=== PATIENT | male | born 1970 | race Caucasian/White ===

== ENCOUNTER 2021-07-17 09:14 | Emergency (ER) | payer BC, SELFPAY ==
[2021-07-17 09:51] VITALS: BP 123/77; PULSE 62; RESP 18; TEMP 36.3; O2SAT 98; BMI 28.2
--- NOTE | 2021-07-17 09:52 | ED.UPPEXIN ---
HPI - Extremity Injury (Upper) General Chief Complaint: Wound/Laceration Stated Complaint: finger lac Time Seen by Provider: 07/17/21 09:52 Source: patient Mode of arrival: ambulatory Limitations: no limitations History of Present Illness HPI narrative: 50 y/o male presenting to the ER with a laceration to the tip of his left index finger when he accidentally cut himself with clipping sheers while cutting branches this morning. He reports diffuse bleeding and pain when it happened but with direct pressure bleeding has stopped. He did not know how deep the laceration was so he came to the ER for evaluation. He is on not anticoagulation. He is not diabetic. He denies numbness in his finger. He is able to fully bend and extend. MD complaint: injury to: left and finger Onset (ago): hour(s) Other Extremity Injury: left: fingers (index) Other injuries: none Handedness: right Place: home Severity: mild Severity scale (1-10): 3 Relieving factors: none Exacerbating factors: none Context: laceration Associated symptoms: denies other symptoms Treatments prior to arrival: bandage Related Data Allergies Allergy/AdvReac Type Severity Reaction Status Date / Time No Known Allergies Allergy Verified 07/17/21 09:54 [No Known Allergies*] Review of Systems Review of Systems: Constitutional: No Fever, No Chills Cardiovascular: No Chest Pain Respiratory: No Cough Gastrointestinal: No Nausea, No Vomiting Musculoskeletal: No joint pain, No Myalgias Skin: + Skin Lesions, No rash Neuro: No Weakness, No Numbness Heme/Lymph: No Bruising PMFSH Social History Social History Advance Directives: No Advance Directives Information Provided: No Physical Exam Vital Signs: Vital Signs: Last Vital Signs Temp 97.4 F 07/17/21 09:51 Pulse 62 07/17/21 09:51 Resp 18 07/17/21 09:51 BP 123/77 07/17/21 09:51 Pulse Ox 98 07/17/21 09:51 Body Mass Index 28.2 Appearance: Alert. Oriented X3. No acute distress. HEENT: normal inspection CVS: Normal heart rate and rhythm. Pulses normal. Respiratory: No respiratory distress. Skin: Skin warm and dry. Normal skin color. Normal skin turgor. No rashes. Extremities: left hand normal to inspection. left distal index finger with a 1cm superficial laceration to the pulp without active bleeding. wound edges well approximated, nail intact. cap refill <3 sec. normal ROM of the finger. Neuro: Oriented X 3. No motor deficit. No sensory deficit. Course Course Course Narrative: 50 yo male presenting with superficial minor lac to left index finger. No need for sutures, amenable to dermabond. tetanus given. stable for d/c home - wound care discussed. Procedures Laceration Laceration 1: Site: hand Side (If applicable): left Size (cm): 1 Description: linear Depth: simple, single layer Pre-repair: irrigated extensively Skin layer closed with: other (dermabond skin glue) Critical Care Time Critical Care Time Critical Care Time: No Discharge Plan Discharge Clinical Impression: Laceration Patient Disposition: Home, Self-Care Instructions: Finger Laceration (ED) Additional Instructions: Skin glue was used to close your wound. Do not get wet today. Tomorrow you can briefly wash with soap and water, then pat dry. The glue should fall off on its own within a week, do not peel it off. If you develop signs or symptoms of infection, come back to the ER or call your doctor.
[2021-07-17] MEDS: Diphth,Pertus(ACell),Tet Adult 0.5 ML SYRINGE IM (10:09)
== END 2021-07-17 10:54 | disposition home or self-care (01) ==
PROVIDERS: Emergency Provider Emergency Medicine; PCP Internal Medicine
DX: S61.211A Laceration without foreign body of left index finger without damage to nail, initial encounter (principal); W27.2XXA Contact with scissors, initial encounter; Y93.H2 Activity, gardening and landscaping; Y92.017 Garden or yard in single-family (private) house as the place of occurrence of the external cause; Y99.9 Unspecified external cause status
CPT/HCPCS: 12001; 90471; 90715; 99283; 99284

== ENCOUNTER → 2022-01-18 10:26 | Outpatient (BNVA) | payer OTHER, SELFPAY | PROVIDERS: PCP Internal Medicine; Visit Provider Physician Assistant Medical | DX: S39.012A Strain of muscle, fascia and tendon of lower back, initial encounter (principal); X50.0XXA Overexertion from strenuous movement or load, initial encounter | CPT/HCPCS: 99203 ==

== ENCOUNTER → 2022-01-21 13:22 | Outpatient (BNVA) | payer OTHER, SELFPAY | PROVIDERS: PCP Internal Medicine; Visit Provider Physician Assistant | DX: S39.012A Strain of muscle, fascia and tendon of lower back, initial encounter (principal); X58.XXXA Exposure to other specified factors, initial encounter | CPT/HCPCS: 99214 ==

== ENCOUNTER → 2022-01-31 12:57 | Outpatient (BNVA) | payer OTHER, SELFPAY | PROVIDERS: PCP Internal Medicine; Visit Provider Physician Assistant Medical | DX: M46.1 Sacroiliitis, not elsewhere classified (principal); S39.012A Strain of muscle, fascia and tendon of lower back, initial encounter; X58.XXXA Exposure to other specified factors, initial encounter | CPT/HCPCS: 99213 ==

== ENCOUNTER → 2022-02-14 13:22 | Outpatient (BNVA) | payer OTHER, SELFPAY | PROVIDERS: PCP Internal Medicine; Visit Provider Physician Assistant Medical | DX: S39.012D Strain of muscle, fascia and tendon of lower back, subsequent encounter (principal); X58.XXXD Exposure to other specified factors, subsequent encounter | CPT/HCPCS: 99213 ==

== ENCOUNTER 2022-02-18 10:00 | Outpatient (RCR) | payer OTHER, BC, SELFPAY ==
--- NOTE | 2022-02-02 14:08 | MHC.PT.EP ---
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 He demonstrates poor posture, and body mechancis with functional movements such as bending and lifting. The patient did not have provocation of pain with Elba assessment. He had a left on left sacral torsion and left anterior innominant. I corrected both with MET and he felt slightly better. I educated him on sitting, sleeping posture as well as body mechanics but he will need more instruction. He will need general core stabilization due to hyper lumbar mobility. He is a good candidate for skilled PT. Frequency and Duration: The patient will be seen 2x/week x 4 weeks. Short Term Goals: .Pt to able to demonstrate proper sitting posture with the use of a lumbar roll to decrease aggravating factors. 2.Pt to be able to demonstrate proper posture for common leisure activities such as phone/tablet use. 3.For the patient to demonstrate proper upright sitting posture with use of the lumbar roll to improve compliance and carryover. Longterm Goals: 1. pt to be able to do all functional movements such as squatting, bending, and reaching overhead with good balance and motor control and posture. 2.The patient to demonstrate proper lifting mechanics for household chore activities to show improved functional mobility. 3. Pt to be able to demonstrate self management of lumbar pain by demonstration of HEP. Treatment Plan: Modalities to reduce pain, spasms and effusion. Manual therapy to restore motion and function. Therapeutic exercise to improve strength and flexibility. Neuromuscular re-education for posture and balance. Therapeutic activities to return to functional activities of daily living. Electronically signed by: Jojo Gaston PT DPT Please sign and return to therapist. Thank you for your referral.
== END 2022-04-22 07:59 | disposition home or self-care (01) ==
LOC: HO.PT 10:00
PROVIDERS: Visit Provider Physician Assistant Medical
DX: S39.012D Strain of muscle, fascia and tendon of lower back, subsequent encounter (principal)
CPT/HCPCS: 97110; 97112; 97140; 97162; 97530

== ENCOUNTER → 2022-02-24 09:50 | Outpatient (BNVA) | payer OTHER, SELFPAY | PROVIDERS: PCP Internal Medicine; Visit Provider Physician Assistant | DX: S39.012D Strain of muscle, fascia and tendon of lower back, subsequent encounter (principal); X58.XXXD Exposure to other specified factors, subsequent encounter | CPT/HCPCS: 99213 ==

== ENCOUNTER 2023-03-19 05:29 | Emergency (ER) | payer SELFPAY ==
--- NOTE | ~2023-03-19 | XR_ITS ---
EXAMINATION: XR foot RT min 3V, XR ankle RT min 3V CLINICAL INFORMATION: Reason for Exam pain, swelling COMPARISON: None. TECHNIQUE: 3 views of the right ankle and 3 views of the right foot were obtained. FINDINGS: Right ankle: The bony alignments are intact. The cortices are intact. Articular margins, joint space. Soft tissues are unremarkable. Right foot: Mild hallux valgus deformity. The bony alignments are intact. The cortices are intact. Apparent subtle radiolucency along the anterior aspect of the calcaneus, seen only on the oblique projection, remains indeterminate. XR/XR ankle RT min 3V IMPRESSION: 1. Unremarkable radiographic appearance of the right ankle. 2. Mild hallux valgus deformity. 3. Apparent subtle radiolucency along the anterior aspect of the calcaneus, seen only on the oblique projection, remains indeterminate. Follow-up nonemergent MRI of the right hindfoot may be considered for further clarification, if clinically appropriate. Comparison with prior studies if available would also be helpful for further clarification.
--- NOTE | ~2023-03-19 | XR_ITS ---
EXAMINATION: XR foot RT min 3V, XR ankle RT min 3V CLINICAL INFORMATION: Reason for Exam pain, swelling COMPARISON: None. TECHNIQUE: 3 views of the right ankle and 3 views of the right foot were obtained. FINDINGS: Right ankle: The bony alignments are intact. The cortices are intact. Articular margins, joint space. Soft tissues are unremarkable. Right foot: Mild hallux valgus deformity. The bony alignments are intact. The cortices are intact. Apparent subtle radiolucency along the anterior aspect of the calcaneus, seen only on the oblique projection, remains indeterminate. XR/XR foot RT min 3V IMPRESSION: 1. Unremarkable radiographic appearance of the right ankle. 2. Mild hallux valgus deformity. 3. Apparent subtle radiolucency along the anterior aspect of the calcaneus, seen only on the oblique projection, remains indeterminate. Follow-up nonemergent MRI of the right hindfoot may be considered for further clarification, if clinically appropriate. Comparison with prior studies if available would also be helpful for further clarification.
[2023-03-19 05:35] VITALS: BP 114/59; PULSE 75; RESP 16; TEMP 36.8; O2SAT 96; BMI 28.8
[2023-03-19 05:45] VITALS: BP 125/6; PULSE 78; RESP 19; TEMP 36.7; O2SAT 97
--- NOTE | 2023-03-19 05:56 | PC.NURSE ---
pt assessed , reported right foot numbness, and severe pain that started last night. Pt also reported increased pain with weight bearing, +pedal and posterior pulses by palpation
--- NOTE | 2023-03-19 06:40 | ED.EXTPRO ---
HPI - Extremity Problem General Chief complaint: Extremity Problem Stated complaint: Pain and numbness in right foot Time Seen by Provider: 03/19/23 06:32 Source: patient and RN notes reviewed Mode of arrival: ambulatory Limitations: no limitations History of Present Illness HPI Narrative: This is a 52-year-old male, with a past medical history of hypothyroid, hyperlipidemia, presents to the emergency department today complaints right foot and ankle pain since last night. Patient reports the pain woke him up out of sleep. He describes the pain as a throbbing pain that is constant and worsens with weight-bearing. He reports associated numbness and tingling throughout the whole foot. He denies any calf tenderness or pain. Denies history of former injuries to this foot or right leg. He reports that yesterday he was helping his brother with shingling his roof, however he was standing on the ground for a long period of time. Denies any fevers or chills. Denies taking any medications at home to treat his symptoms. No other complaints or concerns at this time. MD Complaint: extremity pain and extremity swelling Onset (ago): hour(s) Pain Consistency: constant Location: right and lower extremity Severity scale (1-10): 9 Quality: aching Radiation: none Relieving factors: nothing Exacerbating factors: range of motion, weight bearing and palpation Associated symptoms: denies other symptoms Related Data Previous Rx's Medication Instructions Recorded ibuprofen 600 mg tablet 600 mg PO Q6H PRN pain #45 tabs 03/19/23 Allergies Allergy/AdvReac Type Severity Reaction Status Date / Time No Known Allergies Allergy Verified 03/19/23 05:39 [No Known Allergies*] Review of Systems Review of Systems: Constitutional: No Weight loss, No Fever, No Chills, No Night Sweats, No Fatigue, No Malaise ENT/Mouth: No Hearing loss, No Ear Pain, No Nasal Congestion, No Sinus Pain, No Hoarseness, No sore throat, No Rhinorrhea, No Swallowing Difficulty Eyes: No Eye Pain, No Swelling, No Redness, No Foreign Body, No Discharge, No Vision Changes Cardiovascular: No Chest Pain, No SOB, No Dyspnea on Exertion, No Orthopnea, No Edema, No Palpitations Respiratory: No Cough, No Sputum, No Wheezing, No Smoke Exposure, No Dyspnea Gastrointestinal: No Nausea, No Vomiting, No Diarrhea, No Constipation, No Abdominal pain, No Hematochezia, No Melena Genitourinary: No irregular bleeding, No Dysuria, No Urinary Frequency, No Hematuria, No Urinary Incontinence/retention, No Urgency, No Flank Pain, No Urinary Flow Changes, No Hesitancy Musculoskeletal: + joint pain, No Myalgias, + Joint Swelling Skin: No Skin Lesions, No rash Neuro: No Weakness, No Numbness, No Paresthesias, No Loss of Consciousness, No Dizziness, No Headache Psych: No Anxiety/Panic, No Depression, No SI/HI/AH/VH, No Social Issues, Heme/Lymph: No Bruising, No Bleeding,No Lymphadenopathy Endocrine: No Polyuria, No Polydipsia, No Temperature Intolerance Yes all other systems are reviewed and are negative Constitutional: Constitutional: Reports as per [facility] Social History Social History Alcohol intake: current Alcohol intake frequency: a few times a week Alcohol type: wine Smoked in Last 30 Days: No Use of substances other than those prescribed or required for medical reasons: No Advance Directives: No Advance Directives Information Provided: Yes Physical Exam Vital Signs: Vital Signs: Last Vital Signs Temp 98.1 F 03/19/23 05:45 Pulse 78 03/19/23 05:45 Resp 19 03/19/23 05:45 BP 125/6 L 03/19/23 05:45 Pulse Ox 97 03/19/23 05:45 O2 Del Method Room Air 03/19/23 05:45 BMI result Body Mass Index 28.8 Const: General: cooperative, comfortable and no acute distress Orientation/consciousness: patient oriented x3 Limitations: no limitations HEENT: Head: Yes normal to inspection, Yes normocephalic and Yes atraumatic Ears: hearing grossly normal bilaterally General nose exam: Normal external nose present Face and sinus: Yes normal facial exam Mouth: Normal oral and palatal mucosa present, oropharynx normal and moist mucous membranes Throat: Yes posterior oropharynx normal Eyes: General: appearance normal, both eyes and all related structures Eyelids: Yes eyelids normal Conjunctivae: conjunctivae normal Sclerae: sclerae normal Pupils: Equal, round and reactive pupils present EOM: EOMs intact bilaterally Neck: Neck: Yes normal visual inspection, Yes full ROM and Yes no lymphadenopathy Lymphatic: no lymphadenopathy noted Chest: Chest palpation & inspection: normal inspection of the chest Resp: Effort & Inspection: normal respiratory effort and able to speak in complete sentences Auscultation: clear to auscultation bilaterally, no crackles, no rales, no rhonchi and no wheezes Cardio: Rate: regular rate Rhythm: regular rhythm Heart sounds: S1 normal heart sound present and S2 normal heart sound present GI: Inspection: Yes normal to inspection Skin: General skin exam: no rashes or lesions noted Trauma: no lacerations or abrasions Wounds: no wounds Neuro: General: patient oriented x3 and moves all extremities Cranial nerves: Yes Equal, round and reactive pupils present Extrem: Other: Right foot with area of edema and ecchymosis noted to the third and fourth metatarsal region. Limited plantar and dorsiflexion of the right foot and ankle. No pain with eversion, pain with inversion. Distal pulses 2+, distal sensation intact. Able to move all tarsals without difficulty. No pain over the heel of the foot General: Yes normal to inspection Right upper extremity: normal to inspection Left upper extremity: normal to inspection Right lower extremity: normal to inspection Left lower extremity: normal to inspection Course Reevaluation(s) Reevaluation #1: Patient re-evaluated, reporting Toradol did help with his pain. Right foot x-ray shows subtle radiolucency along the anterior aspect of the calcaneus seen only on the oblique projection which remains indeterminate. non emergent MRI recommended for further clarification. This is where patient swelling and tenderness is therefore I stressed the importance of following up with [facility] for further management of symptoms and workup. Patient understands and agrees with this plan. Patient stable for discharge. Placed patient in Wil wrap and given crutches. Stable for discharge. Time: 07:53 Medications Administered Discontinued Medications Generic Name Dose Route Start Last Admin Trade Name Freq PRN Reason Stop Dose Admin Ketorolac Tromethamine 30 mg 03/19/23 06:38 03/19/23 06:46 Ketorolac Tromethamine 30 Mg/Ml Vial IM 03/19/23 06:39 30 mg ONCE ONE Administration Medical Decision Making Medical Decision Making [facility] Narrative: 52 y/o M presenting today for evaluation of atraumatic right foot/ankle pain, numbness and swelling since last night. Patient denies injury or trauma, reports he was standing outside for a prolonged period of time. VSS. Moderate edema noted to the right midfoot. DP pulses 2+, sensation intact. Plan: Xrays of right foot and ankle. Toradol 30mg IM. Differential Diagnosis Differential Diagnoses: The differential diagnosis associated with the presentation includes Right foot sprain, strain, contusion, fracture Admission/Observation Consideration of admission/observation: Escalation of care including admission/observation considered Radiology Impression Discussion of test interpretation with radiology: I have reviewed the radiologist's reading. Radiologist Impression: FINDINGS: Right ankle: The bony alignments are intact. The cortices are intact. Articular margins, joint space. Soft tissues are unremarkable. Right foot: Mild hallux valgus deformity. The bony alignments are intact. The cortices are intact. Apparent subtle radiolucency along the anterior aspect of the calcaneus, seen only on the oblique projection, remains indeterminate. XR/XR foot RT min 3V IMPRESSION: 1.? Unremarkable radiographic appearance of the right ankle. 2.? Mild hallux valgus deformity. 3. Apparent subtle radiolucency along the anterior aspect of the calcaneus, seen only on the oblique projection, remains indeterminate. Follow-up nonemergent MRI of the right hindfoot may be considered for further clarification, if clinically appropriate. Comparison with prior studies if available would also be helpful for further clarification. Dictated By: Asa Wisdom MD Signed By: <Electronically signed by Asa Wisdom MD in OV> 03/19/2328 DD/ TD/TT:? [employer]ing [employer] Operator [employer] Goods: RONI Discharge Plan Discharge Clinical Impression: Foot pain, right, Abnormal x-ray Patient Disposition: Home, Self-Care Instructions: Arthralgia (ED) Additional Instructions: Please weightbear as tolerated on your right foot. Your xrays of your right foot showed no fracture, however was not normal and needs to be further evaluated by orthopedics. Please call tomorrow to make an appointment. Take ibuprofen as prescribed as needed for symptoms. Rest, ice, and elevate your right foot for pain relief. If any new or worsening symptoms occur, please return for re-evaluation. Prescriptions: New ibuprofen 600 mg tablet 600 mg PO Q6H PRN (Reason: pain) Qty: 45 0RF Referrals: [facility] Orth[facility] Surgeons [Provider Group] Stand Alone Forms: Work/School Release Interventions: ED Discharge Assessment Last Done: 03/19/23 09:07 Discharge Date/Time: 03/19/23 09:08
[2023-03-19] MEDS: Ketorolac Tromethamine 30 MG/ML VIAL IM (06:46)
== END 2023-03-19 09:08 | disposition home or self-care (01) ==
PROVIDERS: Emergency Provider Emergency Medicine Emergency Medical Services; PCP Family Medicine
DX: S93.401A Sprain of unspecified ligament of right ankle, initial encounter (principal); M79.671 Pain in right foot; R93.6 Abnormal findings on diagnostic imaging of limbs; M25.571 Pain in right ankle and joints of right foot; X58.XXXA Exposure to other specified factors, initial encounter; Y93.9 Activity, unspecified; Y92.9 Unspecified place or not applicable; Y99.0 Civilian activity done for income or pay
CPT/HCPCS: 73610; 73630; 96372; 99284; J1885

== ENCOUNTER → 2023-03-23 13:54 | Outpatient (BNVA) | payer BC, SELFPAY | PROVIDERS: PCP Family Medicine; Visit Provider Physician Assistant ==

== ENCOUNTER 2023-04-20 07:15 | Outpatient (REF) | payer BC, SELFPAY ==
--- NOTE | ~2023-04-20 | CT_ITS ---
EXAMINATION: CT FOOT WITHOUT CONTRAST, RIGHT CLINICAL INFORMATION: Calcaneal fracture. COMPARISON: Radiographs dated 03/19/2023. TECHNIQUE: Multidetector volumetric imaging was obtained through the right foot without contrast. Multiplanar reformatted images in coronal and sagittal orientations were submitted. This CT examination was performed using dose optimization techniques as appropriate, variously including the following: *Automated exposure control *Adjustment of mA and/or kV according to patient size (this includes techniques or standardized protocols for targeted exams where dose is matched to indication/reason for exam; i.e. extremities or head) *Use of iterative reconstruction technique DLP: 129 mGy-cm FINDINGS: No fracture or malalignment. Bone mineralization is normal. The finding in the calcaneus seen on the prior radiographs likely corresponds to a cystic change within the calcaneal body deep to the angle of Gissane, consistent with a small intraosseous ganglion cyst. No suspicious abnormalities. Talocrural, subtalar, and Chopart joints are normal. Other midfoot joints and forefoot joints are well-preserved and appropriately aligned. Tiny enthesopathic spurs are present at the Achilles tendon insertion and plantar fascial origin on the calcaneus. Soft tissues otherwise unremarkable. Tendons appear intact. CT/CT foot RT wo IV con IMPRESSION: 1. No acute fracture or malalignment at the right foot. 2. Small intraosseous ganglion cyst in the calcaneal body deep to the angle of Gissane. 3. Tiny enthesopathic spurs at the Achilles tendon insertion and plantar fascial origin.
== END 2023-04-20 07:16 | disposition home or self-care (01) ==
LOC: HO.CT 07:15
PROVIDERS: PCP Family Medicine; Visit Provider Physician Assistant
DX: S92.001A Unspecified fracture of right calcaneus, initial encounter for closed fracture (principal); X58.XXXA Exposure to other specified factors, initial encounter; Y93.9 Activity, unspecified; Y92.9 Unspecified place or not applicable; Y99.9 Unspecified external cause status
CPT/HCPCS: 73700

== ENCOUNTER → 2023-04-27 14:53 | Outpatient (BNVA) | payer BC, SELFPAY | PROVIDERS: PCP Family Medicine; Visit Provider Physician Assistant ==